=== PATIENT | male | born 1965 | race Caucasian/White ===

== ENCOUNTER 2024-07-21 08:24 | Emergency (ER) | payer MEDICAID, SELFPAY ==
[2024-07-21 08:48] VITALS: BP 143/78; PULSE 62; RESP 19; TEMP 36.7; O2SAT 97
[2024-07-21 08:49] VITALS: BMI 32.1
--- NOTE | 2024-07-21 08:57 | PD.EDSUICD ---
ED Psych RME/HPI General Chief Complaint: Suicidal Stated Complaint: I WANT TO KILLL MYSELF ; HOMELESS Time Seen by Provider: 07/21/24 08:56 Arrival date/time: 07/21/24 08:24 RME / HPI RME / HPI Narrative: Patient is a 59 year old male presenting to the ED stating his has a history of depression and has been out of his depakote and Prozac, states he has been having a lot of suicidal thoughts. Reports he has also recently became homeless. Denies homicidal ideation, denies hallucinations. Related Data Previous Rx's ?Medication ?Instructions ?Recorded divalproex 500 mg tablet,extended 1,500 mg (3 x 500 mg) PO QDAY #90 07/21/24 release 24 hr (Depakote ER) tabs fluoxetine 40 mg capsule (Prozac) 80 mg (2 x 40 mg) PO QDAY #60 caps 07/21/24 Allergies Allergy/AdvReac Type Severity Reaction Status Date / Time No Known Allergies Allergy Verified 07/21/24 08:27 Review of Systems Review of Systems Narrative Review of Systems: Gen: No fever, no chills, no weight loss EYES: No discharge, no visual changes, no pain HEENT: No ear pain, no congestion, no sore throat PULM: No shortness of breath, no cough, no congestion CV: No chest pain, no dyspnea on exertion, no palpitations GI: No nausea, no vomiting, no diarrhea, no pain, no constipation : No frequency, no urgency, no dysuria Musc/skel: No joint pain, no back pain Skin: No rash Psyc: +depressed, suicidal. No hallucinations Heme/Lymph: No easy bleeding or bruising tendencies Neuro: No weakness, no headache ED Exam Narrative Physical exam: GEN. APPEARANCE: The patient is alert awake oriented X-3 in minimal distress, lying down comfortably, does not look ill/toxic. Patient has good eye contact. Patient is cooperative. VITALS: All vitals were reviewed and the pulse ox is 97% on room air which is normal according to my interpretation. HEENT: Normocephalic, atraumatic. Pupils are equal and reactive. Oral mucosa is moist. Patent Nares NECK: Supple, nontender, no thyromegaly, no meningismus, no JVD, no step offs CHEST: Symmetrical, atraumatic, and with equal expansion , Nontender on palpation no deformity and no crepitus. CARDIOVASCULAR: Heart regular rhythm no murmur or gallop rub or extra beats. LUNGS: Clear to auscultation bilaterally with symmetrical chest rise. No laboring tachypnea or wheezing. No intercostal subcostal retraction. No rales and no rhonchi. ABDOMEN: Soft, flat, nontender to palpation, no guarding or rebound tenderness. There are no abnormal masses palpated. Active and normal bowel sounds. EXTREMITIES: Nontender. No edema. No cyanosis. Patient is able to move all 4 extremities well, with full ROM and good CSM. SKIN: Warm and dry, no jaundice or rashes noted. MUSCULOSKELETAL: No lubar or midline bony tenderness. There is no CVA tenderness. No paraspinal muscle spasm or tenderness. NEURO: Patient is PEACOCK x 4, Cranial nerves II through XII grossly intact. There is no focal neurologic deficits noted. GCS is 15, PNS and [employer]ODUCTION [employer] SUPER[employer]OR appear grossly intact. PSYCHIATRIC: Patient is in cooperative, appears depressed and disheveled. Course Quality Measures none Orders Category Date Time Status Acetaminophen Stat Lab 07/21/24 09:02 Ordered Alcohol, Blood Medical Stat Lab 07/21/24 09:02 Ordered CBC Stat Lab 07/21/24 09:02 Ordered CMP [Comprehensive Metabolic Panel] Stat Lab 07/21/24 09:02 Ordered Drug Screen,Urine Stat Lab 07/21/24 09:02 Ordered Salicylate Stat Lab 07/21/24 09:02 Ordered UA [Urinalysis] Stat Lab 07/21/24 09:02 Ordered Divalproex Delonte Winston [Dmitry Winston] Med 07/21/24 10:03 Discontinued 1,500 mg PO X1 ONE Fluoxetine HCl [PROzac] Med 07/21/24 10:03 Discontinued 80 mg PO X1 ONE Vital Signs Vital signs: Vital Signs Temperature 98.1 F 07/21/24 08:48 Pulse Rate 62 07/21/24 08:48 Respiratory Rate 19 07/21/24 08:48 Blood Pressure 143/78 H 07/21/24 08:48 Pulse Oximetry (%) 97 07/21/24 08:48 Oxygen Delivery Method Room Air 07/21/24 08:48 Psych Patient data External records reviewed:: [facility] previous records Clinical information provided by:: patient Social determinants that could affect healthcare access:: mental health Patient has the following chronic illnesses:: none How is presenting disease/condition affected by chronic disease/condition?: no chronic disease Evaluation data The following diagnostics were reviewed and interpreted by me:: other (specify) (none currently indicated) Lab and/or radiology exams considered but not ordered:: basic lab work up Interpretation Summary: see above Medications / Prescriptions Medications or Prescriptions considered but not ordered:: none Medication administrations:: Medication Administration History Discontinued Medications Divalproex Sodium (Divalproex Sod Dr 500 Mg Tablet.Dr) 1,500 mg PO X1 ONE Stop: 07/21/24 10:04 Fluoxetine HCl (Fluoxetine Hcl 10 Mg Capsule) 80 mg PO X1 ONE Stop: 07/21/24 10:04 see above Consultations Consultation(s) initiated? (list below): Yes Consultation #1 (Physician, Specialty, Details): lock up worker was consulted, safety plan and follow up was put in place for patient. Time: 10:15 Diagnosis Psych Differential Diagnosis: suicidal ideation, depression and acute anxiety Most likely diagnosis given after review of the tests above:: depression Admission Indicated Admission indicated?: not indicated Admission Request Was there a request for admission?: No Disposition Plan Disposition Plan: Discharge Discharge Attestation Discharge Attestation: The patient and all family members were given an opportunity to ask questions and understood the discharge instructions. Discharge instructions specifically effects, indications for sooner follow up or return to the emergency department, and the expected course of current diagnosis. Patient condition: Stable Discharge Plan Plan Patient Disposition: HOME (Self Care) Patient condition on transfer: Stable Prescriptions/Referrals Prescriptions/Med Rec: New divalproex [Depakote ER] 500 mg tablet extended release 24 hr 1,500 mg PO QDAY Qty: 90 0RF fluoxetine [Prozac] 40 mg capsule 80 mg PO QDAY Qty: 60 0RF Problem List Clinical Impression: Suicidal ideation, Depression Patient/Caregiver Discharge Instructions Print Language: German Stand Alone Forms: Ashly Award Info., Patient Portal Info Letter
--- NOTE | 2024-07-21 10:16 | PC.NURSE ---
Per Dr. Vaca, patient not placed on 72hr hold, was able to establish safety plan with patient. Will give medication and discharge people home.
[2024-07-21 10:27] VITALS: BP 133/76; PULSE 57; RESP 19; TEMP 36.4; O2SAT 95
[2024-07-21 10:29] LABS: Basophils % (Auto) 0 % (0-2.5); Eosinophils % (Auto) 1 % (0-10); Hematocrit 46.6 % (41.0-53.0); Hemoglobin 16.5 g/dL (13.5-16.0); Immature Granulocytes % (Auto) 0 % (0-0); Immature Granulocytes Auto 0.01 Thou/mm3 (0.00-0.00); Lymphocytes # (Auto) 1.6 Thou/mm3 (1.0-4.8); Lymphocytes % (Auto) 28 % (10-50); Mean Corpuscular HGB Conc 35.4 g/dl (31.0-37.0); Mean Corpuscular Hemoglobin 30.3 pg (25.0-35.0); Mean Corpuscular Volume 86 fL (80-100); Monocytes # (Auto) 0.5 Thou/mm3 (0.0-0.8); Monocytes % (Auto) 8 % (0-12); Neutrophils # (Auto) 3.6 Thou/mm3 (1.8-7.7); Neutrophils % (Auto) 63 % (37-80); Nucleated Red Blood Cell % 0 /100 WBC (0); Platelet Count 152 Thou/mm3 (140-440); RDW Standard Deviation 37.8 fL (35.1-43.9); Red Blood Count 5.44 Miln/mm3 (4.50-5.90); White Blood Count 5.8 Thou/mm3 (3.8-10.6)
[2024-07-21] MEDS: DIVALPROEX SOD DR 500 MG TABLET.DR 1500 MG PO (10:46)
[2024-07-21] MEDS: FLUoxetine HCL 10 MG CAPSULE 80 MG PO (10:47)
[2024-07-21 10:58] LABS: Acetaminophen < 2.0 mcg/mL (10.0-20.0); Alanine Aminotransferase 16 U/L (10-49); Albumin, Serum 5.3 gm/dL (3.4-4.8); Alcohol, Blood Medical < 3.0 mg/dL (0-10.0); Alkaline Phosphatase 64 U/L (46-116); Anion Gap 7 (7-16); Aspartate Amino Transferase 15 U/L (0-34); BUN/Creatinine Ratio 16 Ratio (12-20); Blood Urea Nitrogen 18 mg/dL (9-23); Calcium 10.2 mg/dL (8.3-10.6); Calcium (Corrected) 10.2 mg/dL (8.5-10.1); Carbon Dioxide 28.1 mMol/L (20.0-31.0); Chloride 103 mMol/L (98-107); Creatinine (Component) 1.1 mg/dL (0.6-1.3); Estimated Creatinine Clearance 89.2 mL/min (>60); Globulin 2.6 gm/dL (2.3-3.5); Glucose 111 mg/dL (74-106); Osmolality,Calculated 278 (275-295); Potassium 3.9 mMol/L (3.4-5.1); Salicylate < 3.0 mg/dL; Sodium 138 mMol/L (136-145); Total Protein 7.9 gm/dL (5.7-8.2); eGFR > 60 See Note
--- NOTE | 2024-07-21 12:07 | PC.CC ---
Pt Sarmad Galvez, is a 59-year-old male arrived to ED voluntary for SI. Vulcanizer met with pt to complete psychological assessment. Pt presents disheveled but was easily engaged and able to sit up on gurney and make direct eye contact as encounter progressed. Pt is noted to be alert and oriented to person, current place and year. Pt reports hx of mental health and reports being prescribed MH medications. Pt reports is off of medication for the past year. Pt denies endorsed self voluntary admit to [facility] in 2017 for a 4 day stay.. Pt placed in ED 17. Pt reports living alone and with sister. ED Lens Molding Equipment Operator encountered Pt for mental health evaluation. ED Lens Molding Equipment Operator used the following interventions: empathy, unconditional positive regard, Socratic dialogue including clarifying and probing questions. Pt was receptive and was able to disclosed that since he has been off of mental health medication he began to experience panic attacks and racing thoughts and it has been difficult to him to sleep at night. ED Lens Molding Equipment Operator used C-SSRS to support process and assessed for SI/HI, self-harming behaviors, method, access to lethal means, plan/intent. Pt was responsive to mental health evaluation and denied plan/intent for SI/HI. Pt denied hx of non-suicidal self-injury. Pt states he just has been feeling lack of control due to racing thoughts and panic attacks and will like to receive MH support. ED Lens Molding Equipment Operator consulted with cement or concrete finishing supervisor Eloisa Alexandra and it was agreed to safety plan with client due to client denying SI/HI with no plan/intent. Pt was engaged and assessed as reliable in participation in safety planning and was in agreement. Pt was able to review positive coping skills of taking and being around sons and sister. Community resources (local clinic, mental health resources, and transportation/nursing home) give to Pt upon discharge.
== END 2024-07-21 11:20 | disposition home or self-care (01) ==
LOC: SERX 10:28
PROVIDERS: Emergency Provider Emergency Medicine
DX: R45.851 Suicidal ideations (principal); F32.A Depression, unspecified; Z59.00 Homelessness unspecified
CPT/HCPCS: 36415; 80053; 80307; 80320; 80329; 81001; 85025; 90839; 96127; 99284; A9270; G0480